=== PATIENT | female | born 1990 | race African-American/Black ===

== ENCOUNTER 2017-06-10 22:50 | Emergency (ER) | payer SELFPAY ==
[~2017-06-10] VITALS: Ht 149.9 cm; Wt 50.0 kg
[2017-06-10 22:57] VITALS: BP 111/69; PULSE 71; RESP 20; O2SAT 99
--- NOTE | 2017-06-10 23:32 | ED.REPORT ---
HPI-Rash / Abscess Date of Service Jun 10, 2017 ED Provider: Mansoor Veliz MD Pt is a 26 year old female with a hx of asthma presenting to the ED complaining of redness and swelling to her left wrist onset 3 days ago. Associated symptoms include severe itchiness. She denies any injury to the wrist, any purulent discharge, or any other symptoms at this time. Denies any IV drug use. Nursing Notes Stated Complaint: SKIN RASH/ ABSCESS Chief Complaint: Extremity Trauma Nursing Notes Reviewed: Yes Allergies: Coded Allergies: No Known Allergies (Unverified Allergy, Unknown, 06/10/17) General Time Seen by MD: 23:28 Chief Complaint Red area Hx Obtained From: Patient Arrived By: Walk-in Onset Occurred: 3 days ago Symptom Duration: Since onset Location: : Forearm Quality: Itching, Painful Severity: Current: Mild Severity: Maximum: Moderate Recent Healthcare: No recent doctor visit, No recent hospitalization Similar Sx Previous: No Past Medical History Past Medical History Hx of migraine headaches Past Surgical History none reported Smoking History Smoker Current Status UNK Social History Alcohol Use: Denies alcohol use Drug Use: Denies drug use Ambulatory Status Independent Review of Systems Constitutional: Denies: Chills, Fever Respiratory: Denies: Shortness of breath Cardiovascular: Denies: Chest pain Skin: Reports Itching, Reports Rash, Reports Swelling Complete sys rev & neg: except as marked. Physical Exam Initial Vital Signs Vital Signs (First) Date Time Temp Pulse Resp B/P Pulse Ox O2 Delivery O2 Flow Rate FiO2 06/10/17 22:57 36.8 71 20 111/69 99 Room Air Initial VS: Reviewed, Vital signs normal Head / Eyes: Atraumatic, Normocephalic, PERRL ENT: Mucous membranes moist, Conjunctiva normal, No scleral icterus Neck: Supple, Non-tender, Full range of motion Respiratory: No respiratory distress Abdomen / GI: No distention Extremities: Vascular intact, Neuro intact Neurologic: Alert, Oriented, Nonfocal Psychiatric: Mood/affect normal, Behavior normal, Normal thought content General/Constitutional: Awake, Alert, No acute distress, Well appearing Skin: Warm, Dry, Intact Area of swelling, redness and tenderness to left wrist with a central lesion consistent with an insect bite. Re-Eval/Medical Decision Med Decision/Clinical Course 26-year-old female with an insect bite of about 3 days duration which is getting more swollen and more uncomfortable. There is some itching to it. It is not clear whether this is a large local reaction or infection. We will treat for both. Re-Evaluation/Progress : Time of Eval: 23:50 Patient Status: Condition improved Re-Evaluation/Progress Note: Discussed plan for discharge. Pt understands and agrees with plan. Counseled Regarding: Diagnosis, Lab results, Need for follow-up, When/why to return to ED Discharge & Departure Impression: Primary Impression: Infected insect bite Encounter type: initial encounter Qualified Code: W57.XXXA - Bitten or stung by nonvenomous insect and other nonvenomous arthropods, initial encounter Disposition: Home Discharge Condition All VS Reviewed: Yes Condition: Improved Patient Instructions: Cellulitis (ED), Insect Bite or Sting (ED) Additional Instructions: This appears to be an insect bite and it may be infected. Topical triamcinolone for itching/swelling. Mupirocin for possible infection. Trimethoprim sulfamethoxazole DS 1 pill twice daily for 10 days, #20 dispensed. Warm compresses. Follow with your regular doctor as needed for persistent symptoms. Referrals: [facility] Scribe Attestation Portions of this note were transcribed by Vishnu Whyte. I, Dr. Veliz personally performed the history, physical exam and medical decision-making; I reviewed and confirmed the accuracy of the information in the transcribed note. Signed by: Jacinda Merchant, 06/11/2017 at 0009. copies to: [facility] Mansoor Veliz MD Jun 10, 2017 23:32 VISHNU WHYTE Jun 10, 2017 23:43
[2017-06-10] MEDS ORDERED: Mupirocin 2% 22 Gm Ointment TOPICAL ONE (23:50)
[2017-06-10] MEDS ORDERED: Triamcinolone 0.1% 30 Gm Cream TOPICAL ONE (23:50)
[2017-06-11] MEDS ORDERED: _Trimethoprim-Sulfa 160/800 mg Tablet PO SCH (08:30)
== END 2017-06-11 00:17 | disposition home or self-care (01) ==
LOC: SED 22:50
DX: S60.862A Insect bite (nonvenomous) of left wrist, initial encounter (principal); W57.XXXA Bitten or stung by nonvenomous insect and other nonvenomous arthropods, initial encounter; Y93.89 Activity, other specified; Y92.89 Other specified places as the place of occurrence of the external cause; Y99.8 Other external cause status; L08.9 Local infection of the skin and subcutaneous tissue, unspecified; G43.909 Migraine, unspecified, not intractable, without status migrainosus; J45.909 Unspecified asthma, uncomplicated

== ENCOUNTER 2017-08-04 23:24 | Emergency (ER) | payer SELFPAY ==
[~2017-08-04] VITALS: Ht 149.9 cm; Wt 50.0 kg
[2017-08-04 23:31] VITALS: BP 127/80; PULSE 96; RESP 18; O2SAT 100
[2017-08-04] MEDS ORDERED: Ondansetron 8 mg ODT Tablet ONE (23:34)
== END 2017-08-05 00:25 | disposition left against medical advice (07) ==
LOC: SED 23:24
DX: R51 Headache (principal); Z53.21 Procedure and treatment not carried out due to patient leaving prior to being seen by health care provider